=== PATIENT | female | born 1970 | race Caucasian/White ===

== ENCOUNTER 2016-06-10 18:19 | Emergency (ER) | payer OTHER ==
[~2016-06-10] VITALS: Ht 154.9 cm; Wt 55.0 kg
[2016-06-10] MEDS ORDERED: VALIUM5 MG PO (19:59)
[2016-06-10] MEDS ORDERED: MOTRIN800 MG PO (19:59)
[2016-06-10] MEDS ORDERED: ULTRACET1 TABLET PO (19:59)
[2016-06-10 20:18] VITALS: BP 133/87
== END 2016-06-10 20:19 | disposition home or self-care (01) ==
LOC: EME 18:19
DX: S16.1XXA Strain of muscle, fascia and tendon at neck level, initial encounter (principal); M54.9 Dorsalgia, unspecified; V49.40XA Driver injured in collision with unspecified motor vehicles in traffic accident, initial encounter
CPT/HCPCS: 72040; 72070; 99281; 99284